=== PATIENT | female | born 1980 | race African-American/Black ===

== ENCOUNTER 2023-05-16 09:04 | Outpatient (REF) | payer OTHER, MEDICAID, SELFPAY ==
--- NOTE | ~2023-05-16 | US_ITS ---
EXAMINATION: MM DIAGNOSTIC DIGITAL BREAST TOMOSYNTHESIS, BILATERAL US DIAGNOSTIC ULTRASOUND BREAST, LEFT CLINICAL INFORMATION: 43-year-old with chronic increasing tender palpable mass anterior left breast. Clear nipple discharge on clinical exam. Patient currently on antibiotics. No prior breast imaging. No known family history breast cancer. The lifetime risk of breast cancer based on the Tyrer-Cuzick Model is 7%. COMPARISON: None (current study represents initial baseline exam). TECHNIQUE: Digital breast tomosynthesis is performed in both the craniocaudal and mediolateral oblique views along with computer-aided detection (CAD). Synthesized 2D images are generated from the tomosynthesis. Additional views are obtained: Right magnification ML, right magnification CC, right magnification rolled CC x2, left CC, left MLO, right MLO. Ultrasound left breast is targeted to the anterior breast using grayscale imaging and color Doppler without and with harmonics. Patient is able to point to area of concern at time of imaging. FINDINGS: The breasts are almost entirely fatty (ACR BI-RADS breast composition Category a). There is a large oval mass with smooth margins at site of clinical concern medial retroareolar breast measuring approximately 4 cm in diameter. There is no skin thickening or coarsening of the Clovis's ligaments. No abnormal calcifications left breast. There are no other significant masses and no architectural abnormality. The axilla are unremarkable. Right breast has loosely grouped heterogeneous calcifications mid lower inner breast, some are grouped in round and rim and others are amorphous. Ultrasound left breast demonstrates a circumscribed hypoechoic mass at site of clinical concern residing just beneath the skin medial periareolar region and measuring approximately 4.3 x 2.4 cm. The internal consistency is mildly heterogeneous. There is increased through-transmission of sound. There is mild surrounding color flow hyperemia. There is no claw sign with the skin to suggest intradermal lesion. No edema tracking in soft tissue planes. No other cystic or solid mass. Results are discussed with the patient at time of visit. Recommend surgical consult with ultrasound-guided aspiration of the left retroareolar mass, core biopsy if unable to aspirate. Suggest stereotactic core biopsy right breast calcifications. Patient is in agreement. Results and recommendations called to president and chief commercial officer (Natali) for provider Arnoldo Moreno CNP on 05/16/2023. US/US breast LT limited IMPRESSION: Left: -Circumscribed mass anterior breast measuring 4.3 cm, possibly complicated cyst/indolent abscess. Right: -Loosely grouped amorphous calcifications mid lower inner quadrant. ASSESSMENT: BI-RADS 4: Suspicious (subcategory 4A: Low suspicion for malignancy) RECOMMENDATION: -Surgical consult. -Left: Ultrasound-guided aspiration left breast lesion, core sampling if lesion will not aspirate. -Right: Stereotactic core biopsy right breast calcifications. This patient's information was entered into a reminder system with a target due date for their next mammogram.
== END 2023-05-16 09:05 | disposition home or self-care (01) ==
LOC: HO.MAMMO 09:04
PROVIDERS: PCP Nurse Practitioner Family; Visit Provider Nurse Practitioner Family
DX: N63.42 Unspecified lump in left breast, subareolar (principal)
CPT/HCPCS: 76642; 77062; 77066

== ENCOUNTER 2023-05-17 09:00 | Outpatient (REF) | payer SELFPAY ==
--- NOTE | ~2023-05-17 | US_ITS ---
Left breast cyst aspiration procedure is described in a single combined report under accession numbers [id number] and [id number].
--- NOTE | ~2023-05-17 | MM_ITS ---
EXAMINATION: US ULTRASOUND-GUIDED CYST ASPIRATION BREAST, LEFT MM DIAGNOSTIC DIGITAL MAMMOGRAPHY, LEFT CLINICAL INFORMATION: 43-year-old with tender palpable mass anterior left breast, 4.3 cm, avascular on ultrasound, suspect abscess. Patient on antibiotics for several days. COMPARISON: Mammography and left breast ultrasound 05/16/2023. FINDINGS: Proper informed consent is obtained from the patient after discussion of the procedure, potential risks and complications, and alternatives. Patient was given an opportunity for questions. The patient appeared to understand. The patient consented to the procedure and signed the consent form. LOCATION: 8:00 subareolar left breast. GUIDANCE: Ultrasound-guided; aseptic technique. LESION: Avascular circumscribed mass 4.3 cm, possibly complicated cyst/indolent abscess. APPROACH: Caudal cranial ANESTHESIA: 21 mL carbonated 1% lidocaine NEEDLE: Aspiration is performed using 18-gauge spinal needle. Additional attempts using 15-gauge and 13.5 gauge needles. ASPIRATION: The initial 10 mL of purulent appearing material was sent to lab for Gram stain and culture and sensitivity. An additional 6 mL of hemorrhagic purulent appearing material aspirated. No additional aspiration was retrieved despite use of 15-gauge 13.5 gauge needles. Pre-aspiration size 4.3 x 2.4 cm. Post-aspiration size 2.9 x 1.9 cm. Case discussed with pathologist. Will include order for cytology on the aspirate as well. DIAGNOSTIC DIGITAL BREAST TOMOSYNTHESIS, LEFT Digital mammography left breast is performed in CC and ML views. There are scattered areas of fibroglandular density (ACR BI-RADS breast composition Category b).The subareolar mass is decreased in size consistent with the aspiration. There is surrounding attenuation related to the anesthesia. No clip (only aspiration performed). Home instructions for both breasts procedures today are reviewed with the patient. Patient has follow-up appointment with surgeon later this week. MM/MM tomosynthesis diagnostic LT IMPRESSION: -Ultrasound-guided aspiration purulent material, total 16 mL. Microbiology and cytology pending. -Stereotactic biopsy contralateral right breast also performed today, separate report.
--- NOTE | ~2023-05-17 | MM_ITS ---
EXAMINATION: STEREOTACTIC TOMOSYNTHESIS-GUIDED VACUUM-ASSISTED BREAST BIOPSY, RIGHT SPECIMEN RADIOGRAPH, RIGHT POST PROCEDURE DIGITAL MAMMOGRAM, RIGHT CLINICAL INFORMATION: 43-year-old with loosely grouped heterogeneous calcifications lower inner right breast, initially noted at baseline diagnostic. Patient also has left left breast ultrasound-guided aspiration following the stereotactic procedure today, described in separate report. COMPARISON: Mammography 05/16/2023. TECHNIQUE/PROCEDURE: Informed consent was obtained from the patient after discussion of the benefits, risks, and alternatives to biopsy today. Patient appeared to understand. Gave opportunity for questions. Patient signed consent form. BIOPSY TABLE: [employer] Prone Biopsy System. LESION: Loosely grouped heterogeneous and amorphous calcifications lower inner right breast. LOCAL ANESTHESIA: 20 mL 1% lidocaine; 10 mL 1% lidocaine with epinephrine. DERMATOTOMY: Single skin cheryle dermatotomy performed. NEEDLE: [employer] Eviva 9-gauge vacuum assisted core biopsy device. APPROACH: Caudal cranial. TARGETING: Combination of digital breast tomosynthesis and stereotactic digital mammography used for targeting. CORES: 14. CLIP: [employer] SecurMark Cylinder-shaped marker. SPECIMEN RADIOGRAPH: Specimen radiographs x 2 are taken in separate room using digital mammography. The index calcifications are in the excised cores. There are at least 7 calcifications in the cores. POST PROCEDURE UNILATERAL DIGITAL MAMMOGRAM: The post biopsy mammogram is performed in separate room using separate digital mammography equipment from the biopsy procedure. CC and ML views are obtained. There are scattered areas of fibroglandular density (breast composition category: b). The clip marker is in position. No gross hematoma. The patient tolerated the procedure well. No immediate complications. Home instructions reviewed with the patient. Final pathology results are pending. MM/MM stereotactic biopsy RT IMPRESSION: 1. Digital tomosynthesis-guided core biopsy right breast with clip placement. 2. Specimen radiograph taken and post procedure mammogram. Final pathology results pending. An addendum report will be issued. 3. Ultrasound-guided aspiration contralateral left breast is also performed following this procedure, separate report.
[2023-05-17] MEDS: Lidocaine HCl 1%/Epi 1:100,000 10 ML VIAL SUBCUT (10:55)
[2023-05-17] MEDS: Sodium Bicarbonate 8.4% 50 MEQ/50 ML VIAL SUBCUT ×2 (10:56→11:40)
[2023-05-17] MEDS: Lidocaine HCl 1 % 20 ML VIAL SUBCUT (11:39)
== END 2023-05-17 09:01 | disposition home or self-care (01) ==
LOC: HO.MAMMO 09:00
PROVIDERS: PCP Nurse Practitioner Family; Visit Provider Surgery
DX: R92.0 Mammographic microcalcification found on diagnostic imaging of breast (principal); N63.23 Unspecified lump in the left breast, lower outer quadrant
CPT/HCPCS: 19000; 19081; 19083; 77061; 77065; 87070; 87205; 88112; 88173; 88305; A4648

== ENCOUNTER 2023-10-19 15:05 | Outpatient (AMB) | payer OTHER, SELFPAY ==
--- NOTE | 2023-10-19 15:16 | MHC.PC.OV ---
Vital Signs 10/19/23 15:17 Height 5 ft 11 in Weight 294 lb 3 oz BMI 41.0 BP 126/72 Blood Pressure Location Lt brachial Position Sitting Respiration 13 Pulse 86 Pulse Source Pulse Oximeter Temp 97.8 F Temp Source Temporal Artery Scan Pulse Oximetry (%) 99 Oxygen Delivery Method Room Air Intake Visit Reasons: HD [facility] 09/23/23-Vomiting/Diarrhea Intake Note: Patient states that she needs refill on pantoprazole and a script sent for hydromorphone due to hospital stating that PCP had prescribing it. Jukebox Operator Required: No Accompanied by: Self / Same As Patient Allergies banana Allergy (Intermediate, Verified 10/19/23 15:39) Swelling Medication List - Last Reconciled 10/19/23 by Sulma Moreno CNP alprazolam 1 mg PO TID haloperidol 10 mg PO BID hydromorphone 4 mg PO Q4H nystatin 1 appl topical BID oxcarbazepine 0 mg PO pantoprazole 20 mg PO DAILY quetiapine 600 mg PO BEDTIME sertraline 100 mg PO BID Tobacco use date assessed: 04/28/23 Dental Screening Dental Screen Date: 10/19/23 Did you have a dental visit in the last 12 months?: No Did you have a dental problem in the last 6 months where you did not have access to dental care?: No Was dental information given to patient?: Yes HPI HPI Comments History of Present Illness Details 43-year-old female presents for follow-up visit She was admitted at [facility] between 09/20/2023 and 09/23/2023 for nausea, vomiting, and abdominal pain. 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 Labs are fairly normal. CT scan abdomen pelvis with contrast negative for acute intra-abdominal pathology. Chest x-ray and liver ultrasound were unremarkable She notes that her nausea, vomiting, and abdominal pain completely resolved She reports improvement of left mastectomy wound and right upper thigh skin graft site. She notes she receives skilled nurse visit from the [facility] for evaluation of mastectomy and graft [facility] Medical History (Updated 10/19/23 @ 15:28 by Belinda Chou MA) Sepsis MRSA (methicillin resistant Staphylococcus aureus) Surgical History (Updated 10/19/23 @ 16:00 by Sulma Moreno CNP) H/O left mastectomy History of salpingectomy History of cholecystectomy Family History Mother High blood pressure High cholesterol Diabetes (Updated 05/17/23 @ 08:44 by KEISHA Brody) Housing: Apartment Patient Tobacco Use Status: Never used Tobacco e-Cigarette/Vaping Use: Never Used Substance Use Type: Marijuana service: No Current occupational status: unemployed Cognitive needs: No Hearing needs: No Vision needs: No Questionnaire Thrive Questionnaire Date Thrive assessed: 04/28/23 ANTONI-7 AMB Questionnaire ANTONI-7 Date ANTONI - 7 assessed: 04/28/23 Source: Developed by Drs. Pierre Russell, Aspen Hilario, Elfego Miranda and colleagues, with an educational abel from [employer]. Review of Systems Const Details: Const Denies chills, Denies fatigue, Denies fever(s), Denies headache(s) and Denies weakness ENT Denies dizziness and Denies headache(s) Card Denies chest pain, Denies lightheadedness, Denies dyspnea and Denies other (Palpitations) Resp Denies cough, Denies dyspnea, Denies wheezing and Denies other ( shortness of breath) GI Denies abdominal pain, Denies melena, Denies hematochezia, Denies change in bowel habits, Denies dyspepsia and Denies nausea Denies hematuria and Denies dysuria Musc Denies abnormal gait, Denies myalgias, Denies arthralgias, Denies numbness and Denies tingling Skin/Breast Denies rash, Denies unusual bruising and Denies wounds Neuro Denies abnormal gait, Denies dizziness, Denies headache(s), Denies memory loss, Denies numbness, Denies Sensory deficit (Neuro), Denies tingling and Denies weakness Psych Denies anxiety, Denies depression, Denies memory loss Endo Denies cold intolerance, Denies fatigue, Denies heat intolerance, Denies polydipsia and Denies polyuria Aller/Immun Denies wheezing Physical exam (Primary Care) Tobacco/Smoking Status: Tobacco use Status Tobacco use date assessed 04/28/23 04/28/23 11:31 Patient Tobacco Use Status Never used Tobacco 05/17/23 08:44 e-Cigarette/Vaping Use Never Used 06/20/23 08:44 Thrive Assessment: Date of Thrive Assessment Date Thrive assessed 04/28/23 04/28/23 12:43 Const Other: General: no acute distress and well developed Nutritional Appearance: well nourished Orientation/consciousness: patient oriented x3 [facility] Head: Yes normocephalic and Yes atraumatic Eyes General: appearance normal, both eyes and all related structures Pupils: Equal, round and reactive pupils present EOM: EOMs intact bilaterally Resp Effort & Inspection: normal respiratory effort Auscultation: clear to auscultation bilaterally Cardio Rate: regular rate Rhythm: regular rhythm Heart sounds: S1 normal heart sound present, S2 normal heart sound present, no gallops, no murmurs and no rubs GI Palpation (GI): No Abdominal aortic bruit present, Soft to palpation, nontender, No hepatosplenomegaly present and No Rebound tenderness present Auscultation: normal bowel sounds General: Yes no CVA tenderness Back/Spine/Pelvis Back: no CVA tenderness Cervical Spine: cervical ROM normal and No Cervical spine tenderness Thoracic/Lumbar Spine: thoraco-lumbar ROM normal, No pain with thoraco-lumbar ROM, No thoracic spinal tenderness and No lumbar spinal tenderness Extrem General: Yes normal to inspection, No edema and No calf tenderness Skin General: warm and dry. Normal skin color. Normal skin turgor Lesions: no lesions Rashes: no rashes Trauma: no lacerations or abrasions Wounds: no wounds Nails: normal Neuro General: patient oriented x3, gait normal and no focal neuro deficit Cranial nerves: Yes Equal, round and reactive pupils present Cognition (Neuro): normal cognition Gait exam (Neuro): Normal gait present Sensory Exam: No Sensory deficit (Neuro) Psych Appearance: grossly normal Affect: normal affect Attitude: cooperative Thought process: Normal thought process present Assessment and Plan Assessment & Plan (1) Status post mastectomy: Code(s): Z90.10 - Acquired absence of unspecified breast and nipple Qualifiers: Laterality: left Qualified Code(s): Z90.12 - Acquired absence of left breast and nipple Plan: S/p 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 with wound VAC placement No open wound to left chest or right upper thigh skin graft site Reports intermittent pain to mastectomy site May take Tylenol ibuprofen for pain Warm/cold compresses encouraged [facility] to continue to evaluate the patient Follow-up with surgery as needed Return with symptoms or concerns Verbalized understanding and agreed with treatment plan (2) Anxiety: Code(s): F41.9 - Anxiety disorder, unspecified Plan: Reports controlled anxiety and depression symptoms Continue current treatment regimen Follow-up in 1 month for an extended physical exam or return sooner with worsening or new symptoms Verbalized understanding and agreed with treatment plan (3) Depression: Code(s): F32.A - Depression, unspecified Plan: As above Medications: Changed From pantoprazole 20 mg PO DAILY To pantoprazole 20 mg PO DAILY 90 days 90 tabs 1RF Coding Level of Care Code Est Pt Level 3 (11331) Diagnoses Status post left mastectomy Z90.12 Laterality: left Anxiety F41.9 Depression F32.A
[2023-10-19 15:17] VITALS: BP 126/72; PULSE 86; RESP 13; TEMP 36.6; O2SAT 99; BMI 41.0
== END 2023-10-19 15:58 | disposition home or self-care (01) ==
PROVIDERS: PCP Nurse Practitioner Family; Visit Provider Nurse Practitioner Family
DX: Z90.12 Acquired absence of left breast and nipple (principal); F41.9 Anxiety disorder, unspecified; F32.A Depression, unspecified
CPT/HCPCS: 99213

== ENCOUNTER → 2023-11-15 11:00 | Outpatient (BNV) | payer OTHER, SELFPAY | PROVIDERS: PCP Nurse Practitioner Family; Visit Provider Radiology Diagnostic Radiology | DX: R92.1 Mammographic calcification found on diagnostic imaging of breast (principal) | CPT/HCPCS: 77061; 77065 ==

== ENCOUNTER 2023-11-15 11:07 | Outpatient (REF) | payer OTHER, SELFPAY ==
--- NOTE | ~2023-11-15 | MM_ITS ---
EXAMINATION: MM DIAGNOSTIC DIGITAL BREAST TOMOSYNTHESIS, RIGHT CLINICAL INFORMATION: -6 month follow-up status post benign biopsy of calcifications right breast lower inner quadrant. Pathology was benign without evidence of atypia or malignancy. -Recent left mastectomy for gangrenous infection. COMPARISON: Mammography: 05/17/2023, 05/16/2023. TECHNIQUE: Digital breast tomosynthesis is performed in both the craniocaudal and mediolateral oblique views along with computer-aided detection (CAD). Synthesized 2D images are generated from the tomosynthesis. In addition, 2-D spot magnification views of the right breast in the CC and ML x2 projection were performed. FINDINGS: The breasts are almost entirely fatty (ACR BI-RADS breast composition Category a). There are no aggressive changes status post biopsy of the lower outer quadrant calcifications. There is a cylindrical biopsy clip present. Same number and morphology of microcalcifications is noted. There are no suspicious masses, suspicious grouped calcifications, or areas of architectural distortion in the right breast. The parenchymal pattern is stable from prior exams. MM/MM tomosynthesis diagnostic RT IMPRESSION: There are no significant changes from prior study. Benign biopsied calcifications right breast lower inner quadrant remains stable without aggressive changes. Six-month interval follow-up mammography recommended when the patient is due for bilateral screening. ASSESSMENT: BI-RADS BI-RADS 3 - Probably benign finding(s) - 6 month follow-up suggested RECOMMENDATION: 6 Month F/U Results were provided to the patient at time of visit by the technologist. This patient's information was entered into a reminder system with a target due date for their next mammogram.
== END 2023-11-15 11:08 | disposition home or self-care (01) ==
LOC: HO.MAMMO 11:07
PROVIDERS: PCP Nurse Practitioner Family; Visit Provider Surgery
DX: R92.0 Mammographic microcalcification found on diagnostic imaging of breast (principal)
CPT/HCPCS: 77061; 77065

== ENCOUNTER 2024-03-09 13:32 | Emergency (ER) | payer OTHER, SELFPAY ==
--- NOTE | ~2024-03-09 | CT_ITS ---
EXAMINATION: CT ABDOMEN AND PELVIS WITHOUT CONTRAST CLINICAL INFORMATION: Abdominal pain. COMPARISON: None available. TECHNIQUE: Multidetector volumetric imaging was performed from the superior aspect of the liver through the pubic symphysis. Sagittal and coronal reformatted images were obtained on the technologist's workstation. This CT examination was performed using dose optimization techniques as appropriate, variously including the following: *Automated exposure control *Adjustment of mA and/or kV according to patient size (this includes techniques or standardized protocols for targeted exams where dose is matched to indication/reason for exam; i.e. extremities or head) *Use of iterative reconstruction technique DLP: 993 mGy-cm FINDINGS: LUNG BASES: The visualized lung bases are unremarkable. LIVER, GALLBLADDER, AND BILIARY TREE: The liver is normal in size, shape, and attenuation. No focal hepatic lesion or biliary ductal dilatation is present. There has been a prior cholecystectomy. PANCREAS: Unremarkable. SPLEEN: Unremarkable. ADRENAL GLANDS: Unremarkable. KIDNEYS AND URETERS: The kidneys are normal in size, shape, and attenuation. No hydronephrosis, hydroureter, or calculi seen. No perinephric stranding. BLADDER: Unremarkable. GASTROINTESTINAL TRACT: The small and large bowel are unremarkable. The appendix is unremarkable. ABDOMINAL WALL: There is a small umbilical hernia containing fat. LYMPH NODES: Normal. VASCULAR: Unremarkable. PELVIC VISCERA: Unremarkable. OSSEOUS STRUCTURES: Unremarkable. CT/CT abdomen pelvis wo IV con IMPRESSION: No significant abnormality. Fleischner guidelines were followed.
[2024-03-09 13:39] VITALS: BP 164/80; PULSE 92; O2SAT 99
--- NOTE | 2024-03-09 13:39 | ED_ITS ---
HPI - Abdominal Pain General Chief Complaint: Abdominal Pain Stated Complaint: ABD PAIN Time Seen by Provider: 03/09/24 19:53 History of Present Illness HPI narrative: See additional note dated 03/09/2024 Related Data Home Medications ?Medication ?Instructions ?Recorded ?Confirmed alprazolam 1 mg tablet 1 mg PO TID 04/28/23 10/19/23 haloperidol 10 mg tablet 10 mg PO BID 04/28/23 10/19/23 oxcarbazepine 600 mg tablet 0 mg PO 04/28/23 10/19/23 quetiapine 400 mg tablet 600 mg PO BEDTIME 04/28/23 10/19/23 sertraline 100 mg tablet 100 mg PO BID 04/28/23 10/19/23 hydromorphone 2 mg tablet 4 mg PO Q4H 10/19/23 10/19/23 Previous Rx's ?Medication ?Instructions ?Recorded nystatin 100,000 unit/gram topical 1 appl topical BID #30 grams 04/28/23 cream pantoprazole 20 mg tablet,delayed 20 mg PO DAILY 90 days #90 tabs 10/19/23 release ondansetron 4 mg disintegrating 4 mg PO Q8H PRN nausea and 03/10/24 tablet vomiting #20 tabs Allergies Allergy/AdvReac Type Severity Reaction Status Date / Time banana Allergy Intermediate Swelling Verified 03/09/24 13:50 PMFSH Past Medical History Medical History (Updated 03/11/24 @ 00:00 by Jeffry Estes) Sepsis MRSA (methicillin resistant Staphylococcus aureus) Surgical History H/O left mastectomy History of salpingectomy History of cholecystectomy Family History Family History Mother High blood pressure High cholesterol Diabetes Social History Social History Housing: Apartment Patient Tobacco Use Status: Never used Tobacco Smoked in Last 30 Days: No e-Cigarette/Vaping Use: Never Used Use of substances other than those prescribed or required for medical reasons: Yes Substance Use Type: Marijuana Advance Directives: No Advance Directives Information Provided: No Patient : No service: No Current occupational status: unemployed Cognitive needs: No Hearing needs: No Vision needs: No Physical Exam ED Vital Signs: Vital Signs - 24 hr 03/09/24 13:48 03/09/24 18:23 03/09/24 20:23 Temperature 98.1 F 99.1 F 98.6 F Pulse Rate 78 80 82 Respiratory Rate 20 18 16 Blood Pressure 146/107 H 181/116 H 157/73 H Pulse Oximetry 99 98 97 Oxygen Delivery Method Room Air Room Air Room Air 03/09/24 21:49 03/09/24 22:16 03/10/24 00:09 Temperature 97.5 F 98.3 F Pulse Rate 79 65 76 Respiratory Rate 16 18 14 Blood Pressure 188/87 H 183/87 H 127/72 Pulse Oximetry 98 98 97 Oxygen Delivery Method Room Air Room Air Room Air BMI result Body Mass Index 41.8 Procedures Procedure Narrative Procedure Narrative: I was asked to assist with IV access. I was able to place a 20 gauge peripheral IV in the left AC with ultrasound guidance. There was good blood return. The line flushed well postprocedure. There were no complications Course Course Course Narrative: This is an RME: Additional HPI, ROS, PE not included below will be deferred to primary provider. Patient is a 43-year-old female who presents to the emergency department via EMS for evaluation of diffuse abdominal pain and vomiting since 0800 today. While awaiting external triage she was noted to place herself on the floor in the waiting room, she is rolling around and not following directions, she is very anxious, yelling out I gotta lay down , wretching, vomiting. Requiring security assistance to redirect her as she is trying to flip herself backwards in the wheelchair. 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 Patient states this has occurred many times in the past, does not know why, states she is typically seen at [facility] Plan: labs, urinalysis, viral panel, offered ondansetron but states that she took 2 Zofran prior to arrival without any improvement. Will attempt to obtain medical records from [facility] Medical Decision Making Lab Data 03/09/24 18:40 03/09/24 18:40 Labs: Lab Results 03/09/24 03/09/24 03/09/24 Range/Units 15:43 16:50 18:40 WBC 12.3 H (4.8-10.8) X10*3/uL RBC 5.37 (4.20-5.50) X10*6/uL Hgb 13.0 (12.0-16.0) g/dl Hct 41.4 (37.0-47.0) % MCV 77.1 L (80.0-98.0) fL MCH 24.2 L (27.0-33.0) pg MCHC 31.4 (31.0-35.0) g/dl RDW 14.3 (11.0-16.0) % Plt Count 305 (160-400) X10*3/uL MPV 9.4 (9.4-12.3) fL Immature Gran % (Auto) 0.4 (0.0-0.4) % Neut % (Auto) 87.5 H (45-73) % Lymph % (Auto) 8.4 L (20-40) % [place] % (Auto) 3.3 (2-11) % Eos % (Auto) 0.2 (0-4) % Baso % (Auto) 0.2 (0-2) % Lymph # (Auto) 1.0 L (1.2-4.9) X10*3/uL [place] # (Auto) 0.4 (0.1-1.2) X10*3/uL Eos # (Auto) 0.0 (0.0-0.4) X10*3/uL Baso # (Auto) 0.0 (0.0-0.2) X10*3/uL Abs Immat Gran (auto) 0.05 H (0.00-0.03) X10*3/uL Absolute Neuts (auto) 10.7 H (2.0-8.3) x10*3/uL Absolute Nucleated RBC 0.000 (0.0-0.012) X10*3/uL Nucleated RBC % (auto) 0.0 (0.0-0.2) /100WBC Sodium 144 (135-145) mmol/L Potassium 3.7 (3.3-5.1) mmol/L Chloride 110 H (96-108) mmol/L Carbon Dioxide 20 L (22-29) mmol/L Anion Gap 18 (12-20) BUN 13 (9-16) mg/dL Creatinine 0.97 (0.5-1.4) mg/dL Estim Creat Clear Calc 113.2 Estimated GFR > 60 Random Glucose 150 H (60-115) mg/dL Calcium 10.1 (8.4-10.2) mg/dL Magnesium 2.3 (1.6-2.6) mg/dL Total Bilirubin 0.3 (0.0-1.0) mg/dL AST 12 (5-31) U/L ALT 12 (0-31) U/L Alkaline Phosphatase 108 (39-117) U/L Total Protein 8.3 H (6.5-8.0) g/dL Albumin 4.7 (3.5-5.0) g/dL Lipase 12 (8-78) U/L Urine Color Yellow Urine Appearance Clear Urine pH 6.0 (5.0-9.0) Ur Specific [place] 1.025 (1.005-1.025) Urine Protein 300 (3+) H (Neg-Trace) mg/dL Urine Glucose (UA) Negative (Negative) mg/dL Urine Ketones Negative (Negative) mg/dL Urine Blood Trace H (Negative) Urine Nitrite Negative (Negative) Ur Leukocyte Esterase Negative (Negative) Urine RBC 3-5 H (0-2) /HPF Urine WBC 0-5 (0-5) /HPF Ur Squamous Epith Cells 3-5 (0-2) /HPF Urine Bacteria Trace (None Seen) Hyaline Casts 0-2 (0-2) /LPF Urine Test NEGATIVE (NEGATIVE) Influenza Type A (PCR) NEGATIVE (Negative) Influenza Type B (PCR) NEGATIVE (Negative) RSV RNA Qual (PCR) NEGATIVE (Negative) SARS-CoV-2 RNA (RT-PCR) NEGATIVE (Negative) Medications Administered Discontinued Medications Generic Name Dose Route Start Last Admin Trade Name Freq PRN Reason Stop Dose Admin Diphenhydramine HCl 25 mg 03/09/24 21:22 03/09/24 21:27 Diphenhydramine Hcl 50 Mg/Ml Vial IM 03/09/24 21:23 25 mg ONCE ONE Administration Hydromorphone HCl 2 mg 03/09/24 21:22 03/09/24 21:27 Hydromorphone Hcl 2 Mg/Ml Vial IM 03/09/24 21:23 2 mg ONCE ONE Administration Protocol Sodium Chloride 1,000 mls @ 999 mls/hr 03/09/24 20:00 03/09/24 22:11 Ns IV 03/09/24 21:00 Infused .Q1H1M KLAUS Infusion Lorazepam 2 mg 03/09/24 21:56 03/09/24 22:11 Lorazepam 2 Mg/Ml Vial IM 03/09/24 21:57 2 mg STAT STA Administration Metoclopramide HCl 10 mg 03/09/24 21:22 03/09/24 21:27 Metoclopramide Hcl 10 Mg/2 Ml Vial IM 03/09/24 21:23 10 mg ONCE ONE Administration Ondansetron HCl 4 mg 03/09/24 13:41 03/09/24 13:58 Ondansetron Odt 4 Mg Tab.Rapdis TRANSLINGU 03/09/24 13:42 Not Given ONCE ONE Discharge Plan Discharge Clinical Impression: Abdominal pain, Nausea & vomiting Patient Disposition: Home, Self-Care Instructions: Acute Nausea and Vomiting (ED), Abdominal Pain (ED) Additional Instructions: CT scan was normal. your labs were reassuring. eat a bland diet and advance slowly over two days return for any worsening symptoms or concerns. Prescriptions: New ondansetron 4 mg tablet,disintegrating 4 mg PO Q8H PRN (Reason: nausea and vomiting) Qty: 20 0RF No Action alprazolam 1 mg tablet 1 mg PO TID oxcarbazepine 600 mg tablet 0 mg PO haloperidol 10 mg tablet 10 mg PO BID quetiapine 400 mg tablet 600 mg PO BEDTIME sertraline 100 mg tablet 100 mg PO BID nystatin 100,000 unit/gram cream 1 appl topical BID Qty: 30 2RF hydromorphone 2 mg tablet 4 mg PO Q4H pantoprazole 20 mg tablet,delayed release (DR/EC) 20 mg PO DAILY 90 Days Qty: 90 1RF Interventions: ED Discharge Assessment Last Done: 03/10/24 01:36 Discharge Date/Time: 03/10/24 01:37 Print Language: Kazakh
[2024-03-09 13:48] VITALS: BP 146/107; PULSE 78; RESP 20; TEMP 36.7; O2SAT 99; BMI 41.8
--- NOTE | 2024-03-09 14:07 | ECG_ITS ---
Test Reason : ABD PAIN Blood Pressure : / mmHG Vent. Rate : 058 BPM Atrial Rate : 058 BPM P-R Int : 152 ms QRS Dur : 084 ms QT Int : 446 ms P-R-T Axes : 046 021 012 degrees QTc Int : 437 ms Sinus bradycardia with sinus arrhythmia Otherwise normal ECG No previous ECGs available Referred By: Danna Perez Electronically Signed By:Blayne Brambila
--- NOTE | 2024-03-09 14:45 | PC.NURSE ---
techs in triage tried to get pt's blood- pt agitated, thrashing, screaming, hit nurse in arm. pt assisted w bathroom- declined to give urine sample.
[2024-03-09 16:36] LABS: Influenza A PCR NEGATIVE (Negative); Influenza B PCR NEGATIVE (Negative); Resp Syncy Virus RNA Qual PCR NEGATIVE (Negative); SARS COV2 PCR INHOUSE NEGATIVE (Negative)
[2024-03-09 17:02] LABS: Appearance Urine Clear; Color Urine Yellow; Glucose Urine UA Negative (Negative); Leukocyte Esterase Urine Negative (Negative); Nitrite Urine Negative (Negative); Specific Gravity - Urine 1.025 (1.005-1.025); UMIC TRIGGER UACC YES; Urine Blood Trace (Negative); Urine Ketones Negative (Negative); Urine Protein 300 (3+) mg/dL (Neg-Trace)
[2024-03-09 17:03] LABS: UPreg QC Valid YES; Urine Pregnancy NEGATIVE (NEGATIVE)
[2024-03-09 17:04] LABS: Bacteria Urine Trace (None Seen); Hyaline Casts Urine 0-2 /LPF (0-2); WBC Urine 0-5 /HPF (0-5)
[2024-03-09 18:23] VITALS: BP 181/116; PULSE 80; RESP 18; TEMP 37.3; O2SAT 98
--- NOTE | 2024-03-09 18:30 | PC.NURSE ---
pa jey aware of repeat bp. pt calmer.
--- NOTE | 2024-03-09 18:32 | PC.NURSE ---
remains in waiting room awaiting bed- techs attempting blood again as pt calmer
[2024-03-09 18:44] LABS: MANUAL DIFF FLAG NO
[2024-03-09 18:53] LABS: Basophils Percent Auto 0.2 % (0-2); Eosinophils Percent Auto 0.2 % (0-4); Hematocrit 41.4 % (37.0-47.0); Imm Gran Abs Auto 0.05 X10*3/uL (0.00-0.03); Imm Gran Pct Auto 0.4 % (0.0-0.4); Lymphocytes Percent Auto 8.4 % (20-40); Mean Corpuscular HGB Conc 31.4 g/dl (31.0-35.0); Mean Corpuscular Hemoglobin 24.2 pg (27.0-33.0); Mean Corpuscular Volume 77.1 fL (80.0-98.0); Mean Platelet Volume 9.4 fL (9.4-12.3); Monocytes Absolute Auto 0.4 X10*3/uL (0.1-1.2); Monocytes Percent Auto 3.3 % (2-11); Neutrophils Absolute Auto 10.7 x10*3/uL (2.0-8.3); Neutrophils Percent Auto 87.5 % (45-73); Platelet Count 305 X10*3/uL (160-400); Red Blood Count 5.37 X10*6/uL (4.20-5.50); Red Cell Distribution Width 14.3 % (11.0-16.0); White Blood Count 12.3 X10*3/uL (4.8-10.8)
[2024-03-09 18:58] LABS: Alanine Aminotransferase 12 U/L (0-31); Albumin Level 4.7 g/dL (3.5-5.0); Alkaline Phosphatase 108 U/L (39-117); Anion Gap 18 (12-20); Aspartate Amino Transferase 12 U/L (5-31); Bilirubin Total 0.3 mg/dL (0.0-1.0); Blood Urea Nitrogen 13 mg/dL (9-16); Calcium 10.1 mg/dL (8.4-10.2); Carbon Dioxide 20 mmol/L (22-29); Chloride 110 mmol/L (96-108); Creatinine Clr Calc Pharmacy 113.2; Estimated Glomerular Filt Rate > 60; Glucose Random 150 mg/dL (60-115); Lipase 12 U/L (8-78); Magnesium 2.3 mg/dL (1.6-2.6); Potassium 3.7 mmol/L (3.3-5.1); Sodium 144 mmol/L (135-145); Total Protein 8.3 g/dL (6.5-8.0)
--- NOTE | 2024-03-09 20:06 | ED_ITS ---
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 Patient in addition reports increased urinary frequency and hematuria. Patient on my arrival in the room is actively vomiting, restless, requesting ?Dilaudid, Zofran and Reglan? Patient reports that she had prior episodes similar to this which resolved after the aforementioned medication. Reports abdominal pain as severe, 10/10 in severity, diffuse Denies diarrhea or bloody stools. No chest pain, shortness of breath or cough. No recent trauma, no headache, blurry vision, slurred speech smokes marjiana daily. denies alcohol use has not had Mestruation for a a long time after she started DEPO Related Data Home Medications ?Medication ?Instructions ?Recorded ?Confirmed alprazolam 1 mg tablet 1 mg PO TID 04/28/23 10/19/23 haloperidol 10 mg tablet 10 mg PO BID 04/28/23 10/19/23 oxcarbazepine 600 mg tablet 0 mg PO 04/28/23 10/19/23 quetiapine 400 mg tablet 600 mg PO BEDTIME 04/28/23 10/19/23 sertraline 100 mg tablet 100 mg PO BID 04/28/23 10/19/23 hydromorphone 2 mg tablet 4 mg PO Q4H 10/19/23 10/19/23 Previous Rx's ?Medication ?Instructions ?Recorded nystatin 100,000 unit/gram topical 1 appl topical BID #30 grams 04/28/23 cream pantoprazole 20 mg tablet,delayed 20 mg PO DAILY 90 days #90 tabs 10/19/23 release Allergies Allergy/AdvReac Type Severity Reaction Status Date / Time banana Allergy Intermediate Swelling Verified 03/09/24 13:50 Review of Systems Review of Systems Yes all other systems are reviewed and are negative [facility] Past Medical History Medical History (Updated 03/09/24 @ 20:42 by Curly Escalona MD) Sepsis MRSA (methicillin resistant Staphylococcus aureus) Surgical History H/O left mastectomy History of salpingectomy History of cholecystectomy Family History Family History Mother High blood pressure High cholesterol Diabetes Social History Social History Housing: Apartment Patient Tobacco Use Status: Never used Tobacco Smoked in Last 30 Days: No e-Cigarette/Vaping Use: Never Used Use of substances other than those prescribed or required for medical reasons: Yes Substance Use Type: Marijuana Advance Directives: No Advance Directives Information Provided: No Patient : No service: No Current occupational status: unemployed Cognitive needs: No Hearing needs: No Vision needs: No Physical Exam ED Vital Signs: Vital Signs - 24 hr 03/09/24 13:48 03/09/24 18:23 03/09/24 20:23 Temperature 98.1 F 99.1 F 98.6 F Pulse Rate 78 80 82 Respiratory Rate 20 18 16 Blood Pressure 146/107 H 181/116 H 157/73 H Pulse Oximetry 99 98 97 Oxygen Delivery Method Room Air Room Air Room Air BMI result Body Mass Index 41.8 General: Alert, Not in Distress Skin: No rash, warm HEENT: Atraumatic, No Exudate or Pharyngeal Erythema Resp: Normal Breath sounds bilaterally Cardio: Regular rate and Rhythm, Normal S1, S2 ABD: Diffusely tender, no guarding or rebound. Normal Bowel sounds. : No cva tenderness Neuro: Alert, oriented x4, PERRL Strenght 5/5 on all extremities Sensation is preserved in both lower and upper extremities Index to nose: normal Cranial Nerves II-XII grossly intact No dysarthria, or aphasia No neglet. Visual snowden are normal bilaterally Psych: Cooperative, NO SI Course Reevaluation(s) Reevaluation #1: Pending imaging, IV fluid and reassessment. Will sign out to dr rodriguez. Time: 20:54 Medical Decision Making Medical Decision Making MDM Narrative: Patient presents emergency room for abdominal pain associated with nausea and vomiting. Pain does not appears to be specific, possible differential diagnosis include gastritis, pancreatitis, hyperemesis, less likely cholecystitis or appendicitis, patient is also complaining of urinary symptoms as some urine in her UA and renal colic can not be completely ruled out. Patient however reports that she had prior episode similar to this which resolved after Dilaudid. Although patient phrases may account for drug-seeking behavior she appears in distress we will give 1 single dose of Dilaudid, get imaging and reassess accordingly in the meantime we also gave IV fluids and antiemetics. Lab Data MDM Lab Attestation statement: I reviewed the patient's lab results. Patient's blood work showed mild leukocytosis, UA positive for blood and 3+ protein. Unclear the clinical significance at this time for this presentation for proteinuria. 03/09/24 18:40 03/09/24 18:40 Labs: Lab Results 03/09/24 03/09/24 03/09/24 Range/Units 15:43 16:50 18:40 WBC 12.3 H (4.8-10.8) X10*3/uL RBC 5.37 (4.20-5.50) X10*6/uL Hgb 13.0 (12.0-16.0) g/dl Hct 41.4 (37.0-47.0) % MCV 77.1 L (80.0-98.0) fL MCH 24.2 L (27.0-33.0) pg MCHC 31.4 (31.0-35.0) g/dl RDW 14.3 (11.0-16.0) % Plt Count 305 (160-400) X10*3/uL MPV 9.4 (9.4-12.3) fL Immature Gran % (Auto) 0.4 (0.0-0.4) % Neut % (Auto) 87.5 H (45-73) % Lymph % (Auto) 8.4 L (20-40) % [place] % (Auto) 3.3 (2-11) % Eos % (Auto) 0.2 (0-4) % Baso % (Auto) 0.2 (0-2) % Lymph # (Auto) 1.0 L (1.2-4.9) X10*3/uL [place] # (Auto) 0.4 (0.1-1.2) X10*3/uL Eos # (Auto) 0.0 (0.0-0.4) X10*3/uL Baso # (Auto) 0.0 (0.0-0.2) X10*3/uL Abs Immat Gran (auto) 0.05 H (0.00-0.03) X10*3/uL Absolute Neuts (auto) 10.7 H (2.0-8.3) x10*3/uL Absolute Nucleated RBC 0.000 (0.0-0.012) X10*3/uL Nucleated RBC % (auto) 0.0 (0.0-0.2) /100WBC Sodium 144 (135-145) mmol/L Potassium 3.7 (3.3-5.1) mmol/L Chloride 110 H (96-108) mmol/L Carbon Dioxide 20 L (22-29) mmol/L Anion Gap 18 (12-20) BUN 13 (9-16) mg/dL Creatinine 0.97 (0.5-1.4) mg/dL Estim Creat Clear Calc 113.2 Estimated GFR > 60 Random Glucose 150 H (60-115) mg/dL Calcium 10.1 (8.4-10.2) mg/dL Magnesium 2.3 (1.6-2.6) mg/dL Total Bilirubin 0.3 (0.0-1.0) mg/dL AST 12 (5-31) U/L ALT 12 (0-31) U/L Alkaline Phosphatase 108 (39-117) U/L Total Protein 8.3 H (6.5-8.0) g/dL Albumin 4.7 (3.5-5.0) g/dL Lipase 12 (8-78) U/L Urine Color Yellow Urine Appearance Clear Urine pH 6.0 (5.0-9.0) Ur Specific [place] 1.025 (1.005-1.025) Urine Protein 300 (3+) H (Neg-Trace) mg/dL Urine Glucose (UA) Negative (Negative) mg/dL Urine Ketones Negative (Negative) mg/dL Urine Blood Trace H (Negative) Urine Nitrite Negative (Negative) Ur Leukocyte Esterase Negative (Negative) Urine RBC 3-5 H (0-2) /HPF Urine WBC 0-5 (0-5) /HPF Ur Squamous Epith Cells 3-5 (0-2) /HPF Urine Bacteria Trace (None Seen) Hyaline Casts 0-2 (0-2) /LPF Urine Test NEGATIVE (NEGATIVE) Influenza Type A (PCR) NEGATIVE (Negative) Influenza Type B (PCR) NEGATIVE (Negative) RSV RNA Qual (PCR) NEGATIVE (Negative) SARS-CoV-2 RNA (RT-PCR) NEGATIVE (Negative) Independent Interpretation I performed an independent interpretation of an: EKG (Personally reviewed and interpreted sinus rhythm with normal intervals) Medications Administered Discontinued Medications Generic Name Dose Route Start Last Admin Trade Name Brandy PRN Reason Stop Dose Admin Ondansetron HCl 4 mg 03/09/24 13:41 03/09/24 13:58 Ondansetron Odt 4 Mg Tab.Rapdis TRANSLINGU 03/09/24 13:42 Not Given ONCE ONE Discharge Plan Discharge Clinical Impression: Abdominal pain, Nausea & vomiting Prescriptions: No Action alprazolam 1 mg tablet 1 mg PO TID oxcarbazepine 600 mg tablet 0 mg PO haloperidol 10 mg tablet 10 mg PO BID quetiapine 400 mg tablet 600 mg PO BEDTIME sertraline 100 mg tablet 100 mg PO BID nystatin 100,000 unit/gram cream 1 appl topical BID Qty: 30 2RF hydromorphone 2 mg tablet 4 mg PO Q4H pantoprazole 20 mg tablet,delayed release (DR/EC) 20 mg PO DAILY 90 Days Qty: 90 1RF Print Language: Vietnamese
[2024-03-09 20:23] VITALS: BP 157/73; PULSE 82; RESP 16; TEMP 37; O2SAT 97
[2024-03-09] MEDS: 0.9 % Sodium Chloride 1,000 ML 999 ML IV (20:39)
[2024-03-09] MEDS: HYDROmorphone HCl 2 MG/ML VIAL IM (21:27)
[2024-03-09] MEDS: Metoclopramide HCl 10 MG/2 ML VIAL IM (21:27)
[2024-03-09] MEDS: diphenhydrAMINE HCL 50 MG/ML VIAL 25 MG IM (21:27)
[2024-03-09 21:49] VITALS: BP 188/87; PULSE 79; RESP 16; TEMP 36.4; O2SAT 98
[2024-03-09] MEDS: LORazepam 2 MG/ML VIAL IM (22:11)
--- NOTE | 2024-03-09 22:13 | PC.NURSE ---
150ml of bile emptied from emissi bag. pt state she's been vomiting since last night. periumbilical belly pain. moist mm. axox3. awaits dry ct.
[2024-03-09 22:16] VITALS: BP 183/87; PULSE 65; RESP 18; O2SAT 98
[2024-03-10 00:09] VITALS: BP 127/72; PULSE 76; RESP 14; TEMP 36.8; O2SAT 97
[2024-03-10 01:20] VITALS: BP 147/78; PULSE 90; RESP 16; TEMP 36.6; O2SAT 97
[2024-03-10 01:36] VITALS: BP 147/78; PULSE 90; RESP 16; TEMP 36.6; O2SAT 97
== END 2024-03-10 01:37 | disposition home or self-care (01) ==
PROVIDERS: Nurse Practitioner Family; Emergency Provider Student in an Organized Health Care Education/Training Program
DX: R10.9 Unspecified abdominal pain (principal); R11.2 Nausea with vomiting, unspecified
CPT/HCPCS: 0241U; 36415; 74176; 80053; 81001; 81003; 81025; 83690; 83735; 85025; 93005; 96360; 96361; 96372; 99284; 99285; J1170; J1200; J2060; J2765

== ENCOUNTER → 2024-03-09 14:07 | Outpatient (BNV) | payer OTHER, SELFPAY | PROVIDERS: Emergency Provider Student in an Organized Health Care Education/Training Program; Visit Provider Internal Medicine Cardiovascular Disease | DX: R00.1 Bradycardia, unspecified (principal) | CPT/HCPCS: 93010 ==